=== PATIENT | male | born 1985 | race Caucasian/White ===

== ENCOUNTER 2017-06-13 08:23 | Emergency (ER) | payer SELFPAY | END 2017-06-13 13:40 | disposition home or self-care (01) | LOC: D.ER 08:23 | DX: S16.1XXA Strain of muscle, fascia and tendon at neck level, initial encounter (principal); V49.9XXA Car occupant (driver) (passenger) injured in unspecified traffic accident, initial encounter; Y93.89 Activity, other specified; Y92.89 Other specified places as the place of occurrence of the external cause ==

== ENCOUNTER 2017-08-16 22:25 | Emergency (ER) | payer SELFPAY ==
[~2017-08-16] VITALS: Ht 172.7 cm; Wt 68.2 kg
[2017-08-16 22:40] VITALS: Ht 172.7 cm; Wt 68.2 kg
[2017-08-17 01:45] LABS: APPEARANCE CLEAR (CLEAR); BILIRUBIN NEGATIVE (NEGATIVE); COLOR STRAW (YELLOW); GLUCOSE NEGATIVE (NEGATIVE); KETONE NEGATIVE (NEGATIVE); NITRITE NEGATIVE (NEGATIVE); PROTEIN NEGATIVE (NEGATIVE); SPECIFIC GRAVITY 1.005 (1.005-1.020); UROBILINOGEN NORMAL (NORMAL)
[2017-08-17 01:50] LABS: UDS - AMPHET NEGATIVE QUAL (NEGATIVE); UDS - BARB NEGATIVE QUAL (NEGATIVE); UDS - BENZO NEGATIVE QUAL (NEGATIVE); UDS - COCAINE NEGATIVE QUAL (NEGATIVE); UDS - OPIATE NEGATIVE QUAL (NEGATIVE); UDS - PCP NEGATIVE QUAL (NEGATIVE); UDS - THC POSITIVE QUAL (NEGATIVE)
[2017-08-17] MEDS ORDERED: TORADOL10 MG PO (01:59)
[2017-08-17 02:14] VITALS: BP 112/68
== END 2017-08-17 02:15 | disposition home or self-care (01) ==
LOC: D.ER 22:25
PROVIDERS: Emergency Medicine
DX: M54.5 Low back pain (principal); M54.16 Radiculopathy, lumbar region; Z76.5 Malingerer [conscious simulation]; F17.200 Nicotine dependence, unspecified, uncomplicated

== ENCOUNTER 2017-09-14 09:08 | Emergency (ER) | payer MEDICAID ==
[~2017-09-14] VITALS: Ht 172.7 cm; Wt 65.9 kg
[~2017-09-14 09:08] MED LIST: TORADOL10 MG PO
[2017-09-14 09:14] VITALS: Ht 172.7 cm; Wt 65.9 kg
[2017-09-14] MEDS ORDERED: CYCLOBENZAPRINE10 MG PO (09:36)
[2017-09-14] MEDS ORDERED: HYDROCODON-ACE1 EAC7 PO (11:08)
[2017-09-14 11:20] VITALS: BP 128/77
== END 2017-09-14 11:20 | disposition home or self-care (01) ==
LOC: D.ER 09:08
DX: S16.1XXA Strain of muscle, fascia and tendon at neck level, initial encounter (principal); V49.9XXA Car occupant (driver) (passenger) injured in unspecified traffic accident, initial encounter; Y93.89 Activity, other specified; Y92.488 Other paved roadways as the place of occurrence of the external cause; S39.012A Strain of muscle, fascia and tendon of lower back, initial encounter; F17.200 Nicotine dependence, unspecified, uncomplicated; M54.6 Pain in thoracic spine

== ENCOUNTER 2017-09-17 12:50 | Emergency (ER) | payer MEDICAID ==
[~2017-09-17] VITALS: Ht 172.7 cm; Wt 68.2 kg
[~2017-09-17 12:50] MED LIST changes: +CYCLOBENZAPRINE10 MG PO; +HYDROCODON-ACE1 EAC7 PO
[2017-09-17 13:00] VITALS: BP 114/84; Ht 172.7 cm; Wt 68.2 kg
[2017-09-17] MEDS ORDERED: TORADOL10 MG PO (15:18)
== END 2017-09-17 16:08 | disposition home or self-care (01) ==
LOC: D.ER 12:50
DX: M54.2 Cervicalgia (principal); M54.5 Low back pain; M54.31 Sciatica, right side; V43.62XD Car passenger injured in collision with other type car in traffic accident, subsequent encounter

== ENCOUNTER 2017-11-12 12:03 | Emergency (ER) | payer BC ==
[~2017-11-12] VITALS: Ht 172.7 cm; Wt 77.1 kg
[2017-11-12 12:05] VITALS: Ht 172.7 cm; Wt 77.1 kg
[2017-11-12 15:49] VITALS: BP 128/83
== END 2017-11-12 15:48 | disposition home or self-care (01) ==
LOC: D.ER 12:03
DX: M54.16 Radiculopathy, lumbar region (principal)

== ENCOUNTER 2017-11-18 06:40 | Emergency (ER) | payer MEDICAID ==
[~2017-11-18] VITALS: Ht 172.7 cm; Wt 68.2 kg
[2017-11-18 06:46] VITALS: Ht 172.7 cm; Wt 68.2 kg
[2017-11-18] MEDS ORDERED: NORCO 7.5/325 T1 TA1 PO (08:01)
[2017-11-18 08:08] VITALS: BP 112/70
== END 2017-11-18 08:06 | disposition home or self-care (01) ==
LOC: D.ER 06:40
DX: S60.221A Contusion of right hand, initial encounter (principal); Y04.2XXA Assault by strike against or bumped into by another person, initial encounter; Y93.89 Activity, other specified; Y92.89 Other specified places as the place of occurrence of the external cause; M79.641 Pain in right hand; F17.200 Nicotine dependence, unspecified, uncomplicated

== ENCOUNTER 2017-12-09 08:34 | Emergency (ER) | payer MEDICAID ==
[~2017-12-09] VITALS: Ht 172.7 cm; Wt 68.2 kg
[~2017-12-09 08:34] MED LIST changes: +NORCO 7.5/325 T1 TA1 PO
[2017-12-09 08:37] VITALS: Ht 172.7 cm; Wt 68.2 kg
[2017-12-09] MEDS ORDERED: NORCO 7.5/325 T1 TA1 PO (09:00)
[2017-12-09 09:30] VITALS: BP 136/91
== END 2017-12-09 09:31 | disposition home or self-care (01) ==
LOC: D.ER 08:34
DX: M48.061 Spinal stenosis, lumbar region without neurogenic claudication (principal); M50.30 Other cervical disc degeneration, unspecified cervical region; F17.200 Nicotine dependence, unspecified, uncomplicated

== ENCOUNTER 2017-12-12 00:37 | Emergency (ER) | payer MEDICAID ==
[~2017-12-12] VITALS: Ht 172.7 cm; Wt 68.2 kg
[2017-12-12 00:38] VITALS: Ht 172.7 cm; Wt 68.2 kg
[2017-12-12 01:18] LABS: APPEARANCE CLEAR (CLEAR); BILIRUBIN NEGATIVE (NEGATIVE); COLOR STRAW (YELLOW); GLUCOSE NEGATIVE (NEGATIVE); KETONE NEGATIVE (NEGATIVE); NITRITE NEGATIVE (NEGATIVE); PROTEIN NEGATIVE (NEGATIVE); SPECIFIC GRAVITY 1.005 (1.005-1.020); UROBILINOGEN NORMAL (NORMAL)
[2017-12-12 01:21] LABS: BASOPHILS 0.3 % (0-2); EOSINOPHILS 1.1 % (0-7); HEMATOCRIT 42.3 % (42.0-54.0); HEMOGLOBIN 14.8 g/dL (13.5-17.5); IMMATURE GRANULOCYTES 0.3 % (0-5); LYMPHOCYTES 30.6 % (15-50); MCH 31.7 pg (26.0-34.0); MCV 90.6 fL (80.0-100.0); MEAN PLATELET VOLUME 8.7 fL (7.4-10.4); MONOCYTES 4.2 % (2-11); NEUTROPHILS 63.5 % (40-80); PLATELET COUNT 254 10x3/uL (130-400); RBC 4.67 10x6/uL (4.20-6.10); RDW 14.9 % (11.5-14.5); WBC 9.2 10x3/uL (4.8-10.8)
[2017-12-12 01:24] LABS: UDS - AMPHET NEGATIVE QUAL (NEGATIVE); UDS - BARB NEGATIVE QUAL (NEGATIVE); UDS - BENZO NEGATIVE QUAL (NEGATIVE); UDS - COCAINE NEGATIVE QUAL (NEGATIVE); UDS - OPIATE NEGATIVE QUAL (NEGATIVE); UDS - PCP NEGATIVE QUAL (NEGATIVE); UDS - THC POSITIVE QUAL (NEGATIVE)
[2017-12-12 01:36] LABS: ALBUMIN 3.9 g/dL (3.4-5.0); ALKALINE PHOSPHATASE 55 U/L (46-116); ALT (SGPT) 37 U/L (10-68); BILIRUBIN - TOTAL 0.17 mg/dL (0.2-1.3); CALC OSMOLALITY 284 mosm/kg (275-300); CALCIUM 8.6 mg/dL (8.5-10.1); CARBON DIOXIDE 26.2 mmol/L (21.0-32.0); CHLORIDE - SERUM 106 mmol/L (98-107); CREATININE - SERUM 0.8 mg/dL (0.6-1.3); GLUCOSE 91 mg/dL (74-106); POTASSIUM - SERUM 3.6 mmol/L (3.5-5.1); PROTEIN - SERUM 7.2 g/dL (6.4-8.2); SODIUM 143 mmol/L (136-145); UREA NITROGEN 12 mg/dL (7-18); eGFR NON AFRICAN AMERICAN > 90 mL/min (90-120)
[2017-12-12] MEDS ORDERED: ROBAXIN500 MG PO (02:30)
[2017-12-12] MEDS ORDERED: ULTRAM50 MG PO (02:30)
[2017-12-12 02:45] VITALS: BP 140/75
== END 2017-12-12 02:45 | disposition home or self-care (01) ==
LOC: D.ER 00:37
PROVIDERS: Family Medicine
DX: S16.1XXA Strain of muscle, fascia and tendon at neck level, initial encounter (principal); V49.9XXA Car occupant (driver) (passenger) injured in unspecified traffic accident, initial encounter; Y93.89 Activity, other specified; Y92.410 Unspecified street and highway as the place of occurrence of the external cause; S80.811A Abrasion, right lower leg, initial encounter; S40.011A Contusion of right shoulder, initial encounter; M62.838 Other muscle spasm; S29.012A Strain of muscle and tendon of back wall of thorax, initial encounter; F17.200 Nicotine dependence, unspecified, uncomplicated

== ENCOUNTER 2017-12-14 21:14 | Emergency (ER) | payer MEDICAID ==
[~2017-12-14] VITALS: Ht 172.7 cm; Wt 68.2 kg
[~2017-12-14 21:14] MED LIST changes: +ROBAXIN500 MG PO; +ULTRAM50 MG PO
[2017-12-14 21:29] VITALS: BP 130/83; Ht 172.7 cm; Wt 68.2 kg
== END 2017-12-15 01:25 | disposition left against medical advice (07) ==
LOC: D.ER 21:14
DX: S46.911A Strain of unspecified muscle, fascia and tendon at shoulder and upper arm level, right arm, initial encounter (principal); V49.9XXA Car occupant (driver) (passenger) injured in unspecified traffic accident, initial encounter; Y93.89 Activity, other specified; Y92.410 Unspecified street and highway as the place of occurrence of the external cause; S20.211A Contusion of right front wall of thorax, initial encounter; M48.00 Spinal stenosis, site unspecified; M54.2 Cervicalgia; R51 Headache; F17.200 Nicotine dependence, unspecified, uncomplicated

== ENCOUNTER 2017-12-15 08:06 | Emergency (ER) | payer MEDICAID ==
[~2017-12-15] VITALS: Ht 172.7 cm; Wt 68.2 kg
[2017-12-15 08:18] VITALS: BP 124/94; Ht 172.7 cm; Wt 68.2 kg
== END 2017-12-15 10:05 | disposition home or self-care (01) ==
LOC: D.ER 08:06
DX: S46.911A Strain of unspecified muscle, fascia and tendon at shoulder and upper arm level, right arm, initial encounter (principal); V49.9XXA Car occupant (driver) (passenger) injured in unspecified traffic accident, initial encounter; Y93.89 Activity, other specified; Y92.410 Unspecified street and highway as the place of occurrence of the external cause; S20.211A Contusion of right front wall of thorax, initial encounter; M48.00 Spinal stenosis, site unspecified; M54.2 Cervicalgia; R51 Headache; F17.200 Nicotine dependence, unspecified, uncomplicated